=== PATIENT | male | born 1980 | race Caucasian/White ===

== ENCOUNTER 2024-03-13 15:51 | Inpatient (IN) | payer OTHER ==
[~2024-03-13] VITALS: Ht 185.4 cm; Wt 185.3 kg
[2024-03-13] MEDS ORDERED: LISI20TA33 PO (16:02)
[2024-03-13] MEDS ORDERED: SERT50TA29 PO (16:02)
[2024-03-13 18:16] LABS: BASO % 0.4 % (0.0-1.0); EOS % 0.1 % (0.0-3.0); HEMATOCRIT 38.6 % (42.0-52.0); LYMPH # 0.5 10^3/uL (1.5-5.0); LYMPH % 5.7 % (24.0-44.0); MEAN CORPUSCULAR HEMOGLOBIN 28.7 pg (27.0-33.0); MEAN CORPUSCULAR HGB CONC 33.7 g/dl (32.0-36.5); MEAN CORPUSCULAR VOLUME 85.2 fl (80.0-96.0); MONO # 0.3 10^3/uL (0.0-0.8); MONO % 3.6 % (2.0-8.0); NEUTROPHILS # 7.6 10^3/uL (1.5-8.5); NEUTROPHILS % 89.5 % (36.0-66.0); PLATELET COUNT, AUTOMATED 172 10^3/uL (150-450); RED BLOOD COUNT 4.53 10^6/uL (4.30-6.10); WHITE BLOOD COUNT 8.5 10^3/uL (4.0-10.0)
[2024-03-13 18:37] LABS: LIPASE 34 U/L (12-53)
[2024-03-13 18:39] LABS: ALBUMIN 4.6 G/DL (3.2-5.2); ALKALINE PHOSPHATASE 53 U/L (46-116); ALT/SGPT 28 U/L (7.0-40); AST/SGOT 25 U/L (<34); BILIRUBIN,DIRECT 0.2 MG/DL (<0.4); BILIRUBIN,TOTAL 0.8 MG/DL (0.3-1.2); BLOOD UREA NITROGEN 21 MG/DL (9-23); CALCIUM LEVEL 9.5 MG/DL (8.5-10.1); CARBON DIOXIDE LEVEL 31 MMOL/L (20-31); CHLORIDE LEVEL 99 MMOL/L (98-107); CREATININE FOR GFR 1.34 MG/DL (0.70-1.30); GLOMERULAR FILTRATION RATE > 60.0 (>60); GLUCOSE, FASTING 130 MG/DL (60-100); POTASSIUM SERUM 4.2 MMOL/L (3.5-5.1); SODIUM LEVEL 135 MMOL/L (136-145); TOTAL PROTEIN 7.2 G/DL (5.7-8.2)
[2024-03-13] MEDS: fentaNYL 100 MCG/2 ML INJECTION IV ONE (20:40)
[2024-03-13] MEDS ORDERED: ISOVUE-370 76% 100ML VIAL As Ordered ONE (21:12)
[2024-03-13] MEDS: ONDANSETRON 4MG 2ML VIAL IV ONE (21:28)
[2024-03-13] MEDS ORDERED: propofoL 200 MG/20 ML VIAL As Ordered ONE (22:01)
[2024-03-13] MEDS ORDERED: ROCURONIUM BROMIDE 50MG/5ML VIAL As Ordered ONE (22:01)
[2024-03-13] MEDS ORDERED: LIDOCAINE 2% 100MG/5ML SDV (FOR ANES.) As Ordered ONE (22:04)
[2024-03-13] MEDS ORDERED: fentaNYL 250 MCG/5 ML INJECTION As Ordered ONE (22:05)
[2024-03-13] MEDS ORDERED: ONDANSETRON 4MG 2ML VIAL As Ordered ONE (22:08)
[2024-03-13] MEDS ORDERED: KETOROLAC 60MG 2ML VIAL As Ordered ONE (22:09)
[2024-03-13] MEDS ORDERED: MIDAZOLAM INJ 2MG/2ML VIAL As Ordered ONE (22:11)
[2024-03-13] MEDS: ceFAZolin 1GM VIAL As Ordered ONE (23:00)
[2024-03-14] VITALS (16 sets, daily range): BP systolic 110–128; BP diastolic 65–80; TEMP 96.6–97.5; O2SAT 90–97
[2024-03-14] MEDS ORDERED: ACETAMINOPHEN 1000MG 100ML IV BAG As Ordered ONE (00:21)
[2024-03-14] MEDS ORDERED: SUGAMMADEX SODIUM 500 MG/5 ML VIAL (BRIDION) As Ordered ONE (00:22)
[2024-03-14] MEDS: LIDOCAINE 1% SDV 30ML VIAL As Ordered ONE (00:33)
[2024-03-14] MEDS ORDERED: ONDANSETRON 4MG 2ML VIAL IV PRN ×2 (00:50→01:00)
[2024-03-14] MEDS ORDERED: MORPHINE 10 MG/ML 1ML VIAL IV PRN (00:50)
[2024-03-14] MEDS ORDERED: ACETAMINOPHEN TAB 650MG DOSE (2X325MG) PO PRN (00:50)
[2024-03-14] MEDS ORDERED: fentaNYL 100 MCG/2 ML INJECTION IV PRN (01:00)
[2024-03-14] MEDS ORDERED: oxyCODONE 5MG TAB PO PRN (01:00)
[2024-03-14] MEDS ORDERED: DEXTROSE 50% 50ML SYRINGE IV PRN (01:00)
[2024-03-14] MEDS ORDERED: HYDROMORPHONE HCL 0.5 MG/ 0.5 ML SYRINGE IV PRN (01:00)
[2024-03-14] MEDS ORDERED: GLUCAGON INJ 1MG VIAL SC PRN (01:00)
[2024-03-14] MEDS ORDERED: GLUCOSE 4 GM CHEW PO PRN (01:00)
[2024-03-14] MEDS ORDERED: INSULIN LISPRO (NovoLOG) PER UNIT SC PRN (01:00)
[2024-03-14] MEDS ORDERED: LR 1,000 ML IV SCH (01:00)
[2024-03-14] MEDS ORDERED: METOCLOPRAMIDE INJ 10MG/2ML VIAL IV PRN (01:00)
[2024-03-14] MEDS: diazePAM 10MG/2ML SYRINGE IV ONE (02:20)
[2024-03-14] MEDS: LR 1,000 ML IV SCH (02:24)
[2024-03-14] MEDS: KETOROLAC 30 MG/ML 1ML VIAL IV PRN (02:42)
[2024-03-14] MEDS ORDERED: ZOLO100T PO (03:15)
[2024-03-14] MEDS ORDERED: SYNT125T PO (03:15)
[2024-03-14] MEDS ORDERED: BERB500C PO (03:19)
[2024-03-14 06:23] LABS: BASO % 0.1 % (0.0-1.0); HEMATOCRIT 36.9 % (42.0-52.0); HEMOGLOBIN 12.8 g/dl (13.5-17.5); LYMPH # 0.3 10^3/uL (1.5-5.0); LYMPH % 3.7 % (24.0-44.0); MEAN CORPUSCULAR HEMOGLOBIN 29.2 pg (27.0-33.0); MEAN CORPUSCULAR HGB CONC 34.7 g/dl (32.0-36.5); MEAN CORPUSCULAR VOLUME 84.2 fl (80.0-96.0); MONO # 0.2 10^3/uL (0.0-0.8); MONO % 2.2 % (2.0-8.0); NEUTROPHILS # 8.1 10^3/uL (1.5-8.5); NEUTROPHILS % 93.3 % (36.0-66.0); PLATELET COUNT, AUTOMATED 177 10^3/uL (150-450); RED BLOOD COUNT 4.38 10^6/uL (4.30-6.10); WHITE BLOOD COUNT 8.7 10^3/uL (4.0-10.0)
[2024-03-14 06:44] LABS: BLOOD UREA NITROGEN 19 MG/DL (9-23); CALCIUM LEVEL 9.2 MG/DL (8.5-10.1); CARBON DIOXIDE LEVEL 30 MMOL/L (20-31); CHLORIDE LEVEL 97 MMOL/L (98-107); CREATININE FOR GFR 1.13 MG/DL (0.70-1.30); GLOMERULAR FILTRATION RATE > 60.0 (>60); GLUCOSE, FASTING 149 MG/DL (60-100); POTASSIUM SERUM 4.4 MMOL/L (3.5-5.1); SODIUM LEVEL 133 MMOL/L (136-145)
[2024-03-14] MEDS ORDERED: LISI30TA4 PO (08:22)
[2024-03-14] MEDS ORDERED: LEVO112T2 PO (08:22)
[2024-03-14] MEDS ORDERED: HOME MED LIST COMPLETE! XX SCH (08:25)
[2024-03-14] MEDS ORDERED: PERCOCET 5MG/325MG TAB PO PRN ×2 (08:55)
[2024-03-14] MEDS: PANTOPRAZOLE 40MG VIAL IV SCH (09:30)
[2024-03-14] MEDS: ENOXAPARIN 40MG/0.4ML SYRINGE (J1650 PER 10MG) SC SCH (09:32)
[2024-03-14] MEDS: KETOROLAC 30 MG/ML 1ML VIAL IV SCH (09:34)
[2024-03-14] MEDS: LEVOTHYROXINE 112MCG TABLET (0.112MG) PO SCH (09:56)
[2024-03-14] MEDS: SERTRALINE 100 MG TAB PO SCH (21:08)
[2024-03-15 04:00] VITALS: BP 127/62; TEMP 97.6; O2SAT 93
[2024-03-15 06:20] LABS: BASO % 0.2 % (0.0-1.0); EOS % 0.6 % (0.0-3.0); HEMATOCRIT 33.2 % (42.0-52.0); LYMPH # 0.6 10^3/uL (1.5-5.0); LYMPH % 12.2 % (24.0-44.0); MEAN CORPUSCULAR HGB CONC 33.1 g/dl (32.0-36.5); MEAN CORPUSCULAR VOLUME 87.6 fl (80.0-96.0); MONO # 0.3 10^3/uL (0.0-0.8); MONO % 5.6 % (2.0-8.0); NEUTROPHILS # 3.8 10^3/uL (1.5-8.5); PLATELET COUNT, AUTOMATED 142 10^3/uL (150-450); RED BLOOD COUNT 3.79 10^6/uL (4.30-6.10); WHITE BLOOD COUNT 4.7 10^3/uL (4.0-10.0)
[2024-03-15 06:38] LABS: HEMOGLOBIN A1c 5.6 % (4.0-6.0)
[2024-03-15 06:39] LABS: BLOOD UREA NITROGEN 22 MG/DL (9-23); CALCIUM LEVEL 8.4 MG/DL (8.5-10.1); CARBON DIOXIDE LEVEL 32 MMOL/L (20-31); CHLORIDE LEVEL 100 MMOL/L (98-107); GLOMERULAR FILTRATION RATE > 60.0 (>60); GLUCOSE, FASTING 112 MG/DL (60-100); SODIUM LEVEL 136 MMOL/L (136-145)
[2024-03-15 13:30] VITALS: BP 128/88; TEMP 97; O2SAT 98
[2024-03-15 20:00] VITALS: BP 138/76; TEMP 97.2; O2SAT 98
[2024-03-15 21:00] VITALS: O2SAT 97
[2024-03-16 01:00] VITALS: O2SAT 96
[2024-03-16 04:00] VITALS: O2SAT 95
[2024-03-16 05:26] VITALS: BP 124/75; TEMP 97; O2SAT 97
[2024-03-16 08:33] VITALS: BP 147/85
[2024-03-16] MEDS ORDERED: AUGM500T34 PO (10:53)
[2024-03-16] MEDS ORDERED: PERCOCET PO (10:53)
== END 2024-03-16 11:34 | disposition home or self-care (01) | DRG 330 ==
LOC: M ED 15:51 → M SDC 20:00 → M ED INP 03-14 00:46 → M MSPAV 03-14 01:49
PROVIDERS: ADMIT Surgery; ATTEND Surgery
PROC: 0DB80ZZ Excision of Small Intestine, Open Approach (ICD-10-PCS; principal; 2024-03-14)
PROC: 0WQF0ZZ Repair Abdominal Wall, Open Approach (ICD-10-PCS; 2024-03-14)
DX: K42.1 Umbilical hernia with gangrene (principal); Z68.43 Body mass index [BMI] 50.0-59.9, adult; I10 Essential (primary) hypertension; E03.9 Hypothyroidism, unspecified; E66.01 Morbid (severe) obesity due to excess calories; G47.33 Obstructive sleep apnea (adult) (pediatric); F32.A Depression, unspecified; Z79.899 Other long term (current) drug therapy

== ENCOUNTER 2024-04-23 09:09 | Emergency (ER) | payer OTHER ==
[~2024-04-23] VITALS: Ht 185.4 cm; Wt 176.1 kg
[~2024-04-23 09:09] MED LIST: AUGM500T34 PO; BERB500C PO; LEVO112T2 PO; LISI20TA33 PO; LISI30TA4 PO; PERCOCET PO; SERT50TA29 PO; SYNT125T PO; ZOLO100T PO
[2024-04-23 10:09] LABS: BASO % 0.4 % (0.0-1.0); EOS # 0.1 10^3/uL (0.0-0.5); EOS % 1.4 % (0.0-3.0); HEMATOCRIT 38.1 % (42.0-52.0); HEMOGLOBIN 12.9 g/dl (13.5-17.5); LYMPH # 0.5 10^3/uL (1.5-5.0); LYMPH % 9.9 % (24.0-44.0); MEAN CORPUSCULAR HEMOGLOBIN 28.9 pg (27.0-33.0); MEAN CORPUSCULAR HGB CONC 33.9 g/dl (32.0-36.5); MEAN CORPUSCULAR VOLUME 85.2 fl (80.0-96.0); MONO # 0.2 10^3/uL (0.0-0.8); MONO % 4.9 % (2.0-8.0); PLATELET COUNT, AUTOMATED 169 10^3/uL (150-450); RED BLOOD COUNT 4.47 10^6/uL (4.30-6.10); WHITE BLOOD COUNT 4.9 10^3/uL (4.0-10.0)
[2024-04-23 10:30] LABS: BLOOD UREA NITROGEN 19 MG/DL (9-23); CALCIUM LEVEL 9.2 MG/DL (8.5-10.1); CARBON DIOXIDE LEVEL 31 MMOL/L (20-31); CHLORIDE LEVEL 100 MMOL/L (98-107); CPK CREATINE PHOSPHOKINASE 343 U/L (46-171); CREATININE FOR GFR 1.42 MG/DL (0.70-1.30); GLOMERULAR FILTRATION RATE 58.2 (>60); GLUCOSE, FASTING 124 MG/DL (60-100); POTASSIUM SERUM 4.7 MMOL/L (3.5-5.1); SODIUM LEVEL 136 MMOL/L (136-145)
[2024-04-23 10:34] LABS: CK-MB VALUE MASS 5.1 NG/ML (<3.6); MB/CK RELATIVE INDEX 1.48 (< OR =4)
[2024-04-23 11:52] LABS: ALBUMIN 4.6 G/DL (3.2-5.2); ALKALINE PHOSPHATASE 59 U/L (46-116); ALT/SGPT 22 U/L (7.0-40); AST/SGOT 19 U/L (<34); BILIRUBIN,DIRECT 0.2 MG/DL (<0.4); BILIRUBIN,TOTAL 0.9 MG/DL (0.3-1.2); TOTAL PROTEIN 7.3 G/DL (5.7-8.2)
[2024-04-23] MEDS: NS 1,000 ML IV ONE (12:20)
[2024-04-23] MEDS: ONDANSETRON 4MG 2ML VIAL IV PRN (12:24)
[2024-04-23 15:20] VITALS: BP 111/63; TEMP 96.9; O2SAT 99
== END 2024-04-23 15:22 | disposition home or self-care (01) ==
LOC: M ED 09:09
DX: R07.9 Chest pain, unspecified (principal); M79.605 Pain in left leg; R94.4 Abnormal results of kidney function studies; I10 Essential (primary) hypertension; E03.9 Hypothyroidism, unspecified; F41.9 Anxiety disorder, unspecified; F32.A Depression, unspecified; F17.220 Nicotine dependence, chewing tobacco, uncomplicated; Z79.2 Long term (current) use of antibiotics; Z79.899 Other long term (current) drug therapy
CPT/HCPCS: 71046; 80048; 80076; 82550; 82553; 84484; 85025; 93005; 93971; 96361; 96374; 99284; J2405